=== PATIENT | male | born 1955 | race African-American/Black ===

== ENCOUNTER 2017-02-18 11:46 | Emergency (ER) | payer SELFPAY ==
[~2017-02-18] VITALS: Ht 195.6 cm; Wt 113.4 kg
--- NOTE | 2017-02-18 12:30 | NUR ---
Patient is AOx4, able to say his name, oriented to place and time, cooperative at this time.
--- NOTE | 2017-02-18 13:00 | NUR ---
Patient is requesting for his thorazine pills, MD notified.
[2017-02-18] MEDS: chlorproMAZINE 25 MG TABLET PO STA ×2 (13:11→13:17)
[2017-02-18] MEDS ORDERED: chlorproMAZINE 50 MG/2 ML AMPUL IM ONE (13:15)
[2017-02-18] MEDS ORDERED: chlorproMAZINE 50 MG/2 ML AMPUL ONE (13:26)
--- NOTE | 2017-02-18 13:35 | NUR ---
Patient is eating lunch tray with good appetite. Patient is also requesting for MD norma notified.
--- NOTE | 2017-02-18 14:04 | NUR ---
Patient discharged to home in stable conditon. Written and verbal after care instructions given to patient. Patient verbalizes understanding of instructions.
== END 2017-02-18 14:10 | disposition home or self-care (01) ==
LOC: ER 11:59 → EDBD 11:59 → ER 14:10
DX: F29 Unspecified psychosis not due to a substance or known physiological condition (principal); F41.9 Anxiety disorder, unspecified; F31.9 Bipolar disorder, unspecified
CPT/HCPCS: 99284; A4663; Q0161; J3230